=== PATIENT | male | born 1970 | race American Indian/Alaskan Native ===

== ENCOUNTER 2017-06-20 21:10 | Emergency (ER) | payer OTHER ==
[2017-06-20 21:34] VITALS: RESP 18; TEMP 98.4
[2017-06-20] MEDS ORDERED: Morphine 2 mg/2 mL syringe IVP STA (22:02)
--- NOTE | 2017-06-20 22:11 | ED PDOC ---
Arrival/HPI - General Historian: Patient - History of Present Illness Time/Duration: < week (2 days) Symptom Course: Worsening Quality: Stabbing - General Chief Complaint: Abdominal Pain Time Seen by Provider: 06/20/17 21:38 - History of Present Illness Narrative History of Present Illness (Text): 06/20/17 22:03 Patient is a 46 year old male with a past medical history of DM2 (takes 50 units of Lantus qHS) presenting to the emergency room with a cc of RLQ abdominal pain. The pain started yesterday and has been getting progressively worse. The pain is described as constant and sharp in nature, "it feels like someone is stabbing me." The pain does not radiate. He is currently nauseous but has not vomited. He had two episodes of diarrhea yesterday and one "normal" formed bowel movement this morning. He has been unable to eat or drink today because of the pain. He has not taken anything for the pain. Denies fevers, chills, chest pain, shortness of breath, headache, vision changes, sore throat, runny nose, cough, loss of bowels, urinary changes, numbness or tingling. (YinOvidio) Past Medical History - Provider Review Nursing Documentation Reviewed: Yes - Endocrine/Metabolic Hx Diabetes Mellitus Type 2: Yes - Psychiatric Hx Substance Use: No Family/Social History - Physician Review Nursing Documentation Reviewed: Yes Family/Social History: Unknown Family HX Smoking Status: Never Smoked Hx Alcohol Use: No Hx Substance Use: No Allergies/Home Meds Allergies/Adverse Reactions: Allergies No Known Allergies Allergy (Verified 06/20/17 21:30) Home Medications: Home Meds Medication Instructions Recorded Confirmed Aspirin [Aspirin Chewable] 81 mg PO DAILY 06/20/17 06/20/17 Review of Systems - Physician Review All systems were reviewed & negative as marked: Yes - Review of Systems Constitutional: Normal Eyes: Normal ENT: Normal Respiratory: Normal Cardiovascular: Normal Gastrointestinal: Abdominal Pain, Diarrhea (2 times, no blood noted), Nausea, Appetite Changes (decreased). absent: Constipation, Vomiting Genitourinary Male: Normal Musculoskeletal: Normal Skin: Normal Neurological: Normal Endocrine: Normal Hemo/Lymphatic: Normal Psychiatric: Normal Physical Exam Vital Signs Reviewed: Yes Temperature: Afebrile Blood Pressure: Normal Pulse: Tachycardic Respiratory Rate: Normal Appearance: Positive for: Uncomfortable (standing, holding his abdomen) Pain Distress: None Mental Status: Positive for: Alert and Oriented X 3 - Systems Exam Head: Present: Atraumatic, Normocephalic Pupils: Present: PERRL Extroacular Muscles: Present: EOMI Conjunctiva: Present: Normal Mouth: Present: Moist Mucous Membranes Neck: Present: Normal Range of Motion Respiratory/Chest: Present: Clear to Auscultation, Good Air Exchange. No: Respiratory Distress, Accessory Muscle Use Cardiovascular: Present: Normal S1, S2, Tachycardic. No: Murmurs Abdomen: Present: Tenderness (diffuse, most severe in RLQ), Peritoneal Signs ( patient states his abdomen is more firm than usual), Guarding, McBurney's Point Tender. No: Distention, Rebound, Rovsing's Sign Present Back: Present: Normal Inspection. No: CVA Tenderness Upper Extremity: Present: Normal Inspection, NORMAL PULSES. No: Cyanosis, Edema Lower Extremity: Present: Normal Inspection, NORMAL PULSES. No: Edema, CALF TENDERNESS Neurological: Present: GCS=15, CN II-XII Intact, Speech Normal Skin: Present: Warm, Dry, Normal Color. 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 Aware and agrees with HPI, clinical findings, plan, and management. Pt, whose past medical history includes diabetes, presented for worsening RLQ pain with nausea and 2 episodes of diarrhea yesterday. Plan: -- CT Abdomen and Pelvis -- Labs, lipase -- Urinalysis -- Zofran -- Morphine -- Insulin -- Reassess and disposition (Layton Spears) 06/20/17 22:[address] abd/pelvis w/IV contrast - r/o appy Given zofran and morphine Patient's blood glucose was elevated - given 8 units of insulin regular IV 06/21/17 01:30 Patient states his abdominal pain is slightly improved. He is not nauseous at this time. Patient will be discharged home. (Ovidio Esqueda) - Lab Interpretations Lab Results: 06/20/17 22:27 06/20/17 22: Lab Results 06/20/17 22:27: Urine Color Yellow, Urine Appearance Clear, Urine pH 6.0, Ur Specific [place] 1.010, Urine Protein Negative, Urine Glucose (UA) >=1000, Urine Ketones Negative, Urine Blood Negative, Urine Nitrate Negative, Urine Bilirubin Negative, Urine Urobilinogen 1.0 H, Ur Leukocyte Esterase Negative 06/20/17 22:: Sodium 140, Potassium 4.1, Chloride 99, Carbon Dioxide 28, Anion Gap 17, BUN 13, Creatinine 0.9, Est GFR ( Amer) > 60, Est GFR (Non- Af Amer) > 60, Random Glucose 467 H*, Calcium 9.5, Total Bilirubin 0.6, AST 26, ALT 37, Alkaline Phosphatase 71, Total Protein 8.1, Albumin 4.7, Globulin 3.5, Albumin/Globulin Ratio 1.3, Lipase 87 06/20/17 22:27: PT 11.5, INR 1.01, APTT 28.0 06/20/17 22:27: WBC 4.4 L, RBC 5.07, Hgb 14.8, Hct 40.9 L, MCV 80.7, MCH 29.2, MCHC 36.2, RDW 12.1, Plt Count 221, MPV 9.2, Gran % 49.7 L, Lymph % (Auto) 35.4 H, Rains % (Auto) 12.6 H, Eos % (Auto) 1.8, Baso % (Auto) 0.5, Gran # 2.21, Lymph # (Auto) 1.6, Rains # (Auto) 0.6, Eos # (Auto) 0.1, Baso # (Auto) 0.02 - RAD Interpretation Narrative RAD Interpretations (Text): 06/21/17 01:06 CT Abd/Pel w/IV contrast - No definite CT evidence of appendicitis. Borderline lymphadenopathy, nonspecific. Followup is suggested. Mild mural thickening vs underdistention of distal esophagus. Clinical correlation is needed. (Ovidio Esqueda) Radiology Orders: 06/20/17 21:48 ABDOMEN & PELVIS [ABD & PELVIS IV CONTRAST ONLY] [CT] Stat - Medication Orders Current Medication Orders: Discontinued Medications Insulin Human Regular (Humulin R) 8 units IVP STAT STA Stop: 06/20/17 23:06 Last Admin: 06/21/17 00:02 Dose: 8 units MAR Blood Glucose Document 06/21/17 00:02 LA (Rec: 06/21/17 00:03 LA [id number]) Blood Glucose Finger Stick Blood Glucose (70-120) 462 IVP Administration Document 06/21/17 00:02 LA (Rec: 06/21/17 00:03 LA [id number]) Charges for Administration # of IVP Administrations 1 Morphine Sulfate (Morphine) 2 mg IVP STAT STA Stop: 06/20/17 22:03 Last Admin: 06/20/17 22:40 Dose: 2 mg IVP Administration Document 06/20/17 22:40 LA (Rec: 06/20/17 22:40 LA [id number]) Charges for Administration # of IVP Administrations 1 Ondansetron HCl (Zofran Inj) 4 mg IVP STAT STA Stop: 06/20/17 21:48 Last Admin: 06/20/17 22:40 Dose: 4 mg IVP Administration Document 06/20/17 22:40 LA (Rec: 06/20/17 22:40 LA [id number]) Charges for Administration # of IVP Administrations 1 Disposition/Present on Arrival - Present on Arrival Any Indicators Present on Arrival: No History of DVT/PE: No History of Uncontrolled Diabetes: No Urinary Catheter: No History of Decub. Ulcer: No History Surgical Site Infection Following: None - Disposition Have Diagnosis and Disposition been Completed?: Yes Disposition Time: 01:28 Patient Plan: Discharge - Disposition Diagnosis: Abdominal pain Disposition: HOME/ ROUTINE Patient Problems: Current Active Problems Problem Status Onset Abdominal pain Acute Condition: IMPROVED Additional Instructions: Patient is to follow up with his PMD in the next 1-2 days. If the patient experiences any new or worsening symptoms, please go to the nearest emergency room. Patient states and he agrees to discharge plan. Referrals: [facility], [Primary Care Provider] - Follow up with primary Forms: [employer]
[2017-06-20] MEDS ORDERED: Iohexol 350 MG/100 ML VIAL ONE (22:18)
[2017-06-20 22:47] LABS: BASO # 0.02 K/mm3 (0.0-2.0); BASO % 0.5 % (0.0-3.0); EOS # 0.1 (0.0-0.7); EOS % 1.8 % (1.5-5.0); GRAN # 2.21 (1.4-6.5); GRAN % 49.7 % (50.0-68.0); HEMOGLOBIN 14.8 g/dL (14.0-18.0); LYMPH # 1.6 (1.2-3.4); LYMPH % 35.4 % (22.0-35.0); MEAN CELL VOLUME 80.7 fl (80.0-105.0); MEAN CORPUSCULAR HEMOGLOBIN 29.2 pg (25.0-35.0); MEAN CORPUSCULAR HGB CONC 36.2 g/dl (31.0-37.0); MEAN PLATELET VOLUME 9.2 fl (7.0-11.0); MONO # 0.6 (0.1-0.6); MONO % 12.6 % (1.0-6.0); RBC 5.07 10^6/uL (3.5-6.1); RED CELL DISTRIBUTION WIDTH 12.1 % (11.5-14.5); WHITE BLOOD COUNT 4.4 10^3/ul (4.5-11.0)
[2017-06-20 22:48] LABS: URINE BILIRUBIN NEGATIVE (NEGATIVE); URINE BLOOD NEGATIVE (NEGATIVE); URINE GLUCOSE (UA) >=1000 mg/dL (NEGATIVE); URINE LEUKOCYTE ESTERASE NEGATIVE Leu/uL (NEGATIVE); URINE PROTEIN NEGATIVE mg/dL (<30 mg/dL)
[2017-06-20 22:49] LABS: URINE APPEARANCE CLEAR (CLEAR); URINE COLOR YELLOW (YELLOW)
[2017-06-20 23:00] LABS: ALB/GLOB RATIO 1.3 (1.1-1.8); ALBUMIN 4.7 g/dL (3.0-4.8); ALT/SGPT 37 U/L (7-56); AST/SGOT 26 U/L (17-59); BLOOD UREA NITROGEN 13 mg/dL (7-21); CALCIUM 9.5 mg/dL (8.4-10.5); GFR AFRICAN-AMERICAN > 60; GFR NON-AFRICAN AMERICAN > 60; LIPASE 87 U/L (23-300)
[2017-06-20 23:01] LABS: INR 1.01 (0.93-1.08); PROTHROMBIN TIME 11.5 SECONDS (9.4-12.5)
[2017-06-20] MEDS ORDERED: Insulin Regular 1 UNITS/0.01 ML ML IVP STA (23:05)
[2017-06-21 00:38] VITALS: BP 127/72; PULSE 82; O2SAT 95
--- NOTE | 2017-06-21 01:02 | CT ---
EXAM: CT Abdomen and Pelvis With Intravenous Contrast CLINICAL HISTORY: 46 years old, male; Pain; Abdominal pain; Localized; Right lower quadrant (rlq); Additional info: Rlq pain, R/O appy TECHNIQUE: Axial computed tomography images of the abdomen and pelvis with intravenous contrast. All CT scans at this facility use one or more dose reduction techniques, viz.: automated exposure control; ma/kV adjustment per patient size (including targeted exams where dose is matched to indication; i.e. head); or iterative reconstruction technique. Coronal and sagittal reformatted images were created and reviewed. CONTRAST: 100 mL of OMNI 350 administered intravenously. COMPARISON: No relevant prior studies available. FINDINGS: Limitations: Motion artifact - mild. Lung bases: Minimal atelectasis. Mediastinum: Mild mural thickening vs underdistention of distal esophagus. ABDOMEN: Liver: Unremarkable. No mass. Gallbladder and bile ducts: No calcified stones. No ductal dilation. Pancreas: No ductal dilation. No mass. Spleen: No splenomegaly. Adrenals: No mass. Kidneys and ureters: No mass. No hydronephrosis. Stomach and bowel: No definite mural thickening. No obstruction. PELVIS: Appendix: Normal caliber. No inflammation. Bladder: Unremarkable. Reproductive: Unremarkable as visualized. ABDOMEN and PELVIS: Intraperitoneal space: No significant fluid collection. No free air. Bones/joints: Mild degenerative changes of spine. Mild compression deformity superior endplate T12 vertebral body, chronic. No acute fracture. Soft tissues: Minimal right gynecomastia. Minimal diffuse stranding within subcutaneous tissues. Tiny inguinal hernias containing fat. Vasculature: Unremarkable. No aneurysm. Lymph nodes: Several subcentimeter/few borderline enlarged short axis lymph nodes within upper abdomen. IMPRESSION: 1. No definite CT evidence of appendicitis. 2. Borderline lymphadenopathy, nonspecific. Followup is suggested. 3. Mild mural thickening vs underdistention of distal esophagus. Clinical correlation is needed. 4. Incidental/non-acute findings are described above.
== END 2017-06-21 01:57 | disposition home or self-care (01) ==
LOC: ED 21:10 → MERGE 21:10 → ED 06-21 01:57
DX: R10.31 Right lower quadrant pain (principal); E11.9 Type 2 diabetes mellitus without complications; Z79.4 Long term (current) use of insulin
CPT/HCPCS: 74177; 80053; 81003; 82948; 83690; 85025; 85610; 85730; 96374; 96375; 99284; J2270; J2405; Q9967